=== PATIENT | female | born 1980 | race Caucasian/White ===

== ENCOUNTER 2021-09-10 12:58 | Emergency (ER) | payer MEDICAID ==
[2021-09-10] MEDS ORDERED: Lidocaine 1% 5 ML VIAL INJECT ONE (13:25)
[2021-09-10] MEDS ORDERED: Bacitracin Oint 1 GM U/D Packet TOP ONE (13:26)
== END 2021-09-10 14:44 | disposition home or self-care (01) ==
LOC: JP.ED 12:58
DX: S61.211A Laceration without foreign body of left index finger without damage to nail, initial encounter (principal); Z88.5 Allergy status to narcotic agent; Z88.8 Allergy status to other drugs, medicaments and biological substances; W26.8XXA Contact with other sharp object(s), not elsewhere classified, initial encounter
CPT/HCPCS: 12001; 99282; 99282-25

== ENCOUNTER 2023-01-21 07:48 | Emergency (ER) | payer MEDICAID ==
[2023-01-21] MEDS ORDERED: Lidocaine 1% 5 ML VIAL INJECT ONE (08:46)
[2023-01-21] MEDS ORDERED: Bacitracin Oint 1 GM U/D Packet TOP ONE (08:46)
== END 2023-01-21 09:57 | disposition home or self-care (01) ==
LOC: JP.ED 07:48
DX: S61.012A Laceration without foreign body of left thumb without damage to nail, initial encounter (principal); J45.909 Unspecified asthma, uncomplicated; Z88.5 Allergy status to narcotic agent; Z87.891 Personal history of nicotine dependence; Z86.16 Personal history of COVID-19; W26.0XXA Contact with knife, initial encounter; Y92.000 Kitchen of unspecified non-institutional (private) residence as the place of occurrence of the external cause
CPT/HCPCS: 12001; 99282